=== PATIENT | male | born 1955 | race Hispanic/Latino ===

== ENCOUNTER 2020-02-22 14:02 | Inpatient (IN) | payer OTHER, SELFPAY ==
[~2020-02-22] VITALS: Ht 167.6 cm; Wt 94.5 kg
[~2020-02-22 14:02] MED LIST: CIPR-245 PO; TAMS-1 PO; enalapril PO
[2020-02-22] MEDS ORDERED: ADENOSINE 3 MG/ML 2ML VIAL IV ONE (14:12)
[2020-02-22] MEDS ORDERED: DILTIAZEM HCL 5 MG/ML 10 ML VIAL IV ONE (14:21)
[2020-02-22] MEDS ORDERED: DILTIAZEM HCL 125 MG/25 ML VIAL IV ONE (14:21)
[2020-02-22] MEDS ORDERED: SODIUM CHLORIDE 0.9% 100 ML IV ONE (14:23)
[2020-02-22 14:28] LABS: BASOPHILS % (AUTO) 0.2 % (0.0-5.0); EOSINOPHILS % (AUTO) 0.1 % (0.0-8.0); HEMATOCRIT 42.5 % (42-54); LYMPHOCYTES % (AUTO) 19.8 % (21.0-51.0); MEAN CORPUSCULAR HEMOGLOBIN 28.4 pg (27.0-33.0); MEAN CORPUSCULAR HGB CONC 32.9 g/dL (32.0-36.0); MEAN CORPUSCULAR VOLUME 86.2 fL (79-99); MONOCYTES % (AUTO) 11.2 % (3.0-13.0); NEUTROPHILS % (AUTO) 68.4 % (40.0-77.0); PLATELET COUNT (AUTO) 233 K/uL (130-400); RED BLOOD CELL COUNT(AUTO) 4.93 MIL/uL (4.50-6.20); RED CELL DISTRIBUTION WIDTH 14.2 % (11.0-15.5); WHITE BLOOD COUNT (AUTO) 12.2 K/uL (4.8-10.8)
[2020-02-22] MEDS ORDERED: FENTANYL CITRATE PF 50 MCG/1 ML 2ML VIAL ONE (14:30)
[2020-02-22] MEDS ORDERED: MIDAZOLAM HCL 5 MG/ML 2ML VIAL IV ONE (14:30)
[2020-02-22 14:40] LABS: CREATININE 3.3 mg/dL (0.5-1.5); POTASSIUM 3.7 mmol/L (3.5-5.1)
[2020-02-22 14:42] LABS: INR 0.96 (0.85-1.15); PROTHROMBIN TIME 10.4 SEC (9.6-11.6)
[2020-02-22 14:45] LABS: ALBUMIN 3.9 g/dL (3.5-5.0); TOTAL PROTEIN, SERUM 7.3 g/dL (6.0-8.3)
[2020-02-22] MEDS ORDERED: SODIUM CHLORIDE 0.9% 500ML 500 ML IV ONE (15:19)
[2020-02-22] MEDS ORDERED: CEFTRIAXONE SODIUM 1 GM ONE (15:27)
[2020-02-22] MEDS ORDERED: SODIUM CHLORIDE 0.9% 50 ML IV ONE (15:28)
[2020-02-22] MEDS ORDERED: ASPIRIN 325 MG TABLET ONE (15:34)
[2020-02-22] MEDS ORDERED: SODIUM CHLORIDE 0.9% 1000ML 1,000 ML IV SCH ×2 (15:57→16:00)
[2020-02-22] MEDS ORDERED: NITROGLYCERIN 0.4 MG SL TAB SL PRN (16:00)
[2020-02-22] MEDS ORDERED: ONDANSETRON HCL 4 MG/2 ML VIAL IV PRN (16:00)
[2020-02-22] MEDS ORDERED: ACETAMINOPHEN 325 MG TAB PO PRN ×2 (16:00)
[2020-02-22] MEDS ORDERED: LACTULOSE 20 GM/30 ML UDCUP PO PRN (16:00)
[2020-02-22 16:06] LABS: APPEARANCE,URINE Cloudy (CLEAR); BILIRUBIN,URINE Small (NEGATIVE); COLOR,URINE Dark Yellow (YELLOW); GLUCOSE, URINE (UA) Negative (NEGATIVE); KETONES,URINE 15 mg/dL (NEGATIVE); LEUKOCYTE ESTERASE ,URINE Moderate (NEGATIVE); NITRATE,URINE Negative (NEGATIVE); OCCULT BLOOD,URINE Negative (NEGATIVE); PROTEIN,URINE POS 1+ mg/dL (NEGATIVE)
[2020-02-22 16:14] LABS: AMPHET/METH SCREEN,URINE NEGATIVE (NEGATIVE); BARBITURATE SCREEN, URINE NEGATIVE (NEGATIVE); BENZODIAZEPINES SCREEN,URINE POSITIVE (NEGATIVE); CANNABINOID SCREEN,URINE NEGATIVE (NEGATIVE); COCAINE SCREEN,URINE NEGATIVE (NEGATIVE); OPIATE SCREEN,URINE NEGATIVE (NEGATIVE); PHENCYCLIDINE SCREEN,URINE NEGATIVE (NEGATIVE)
[2020-02-22 16:50] LABS: BACTERIA,URINE Few /HPF (None Seen); MUCUS,URINE Few LPF (None Seen); SQUAMOUS EPITHELIAL CELL,UR Few /HPF (0-2)
[2020-02-22] MEDS ORDERED: FUROSEMIDE 10 MG/ML 2ML VIAL IV SCH (17:15)
[2020-02-22 17:17] LABS: HEMOGLOBIN A1C 5.8 % (4.0-6.0)
[2020-02-22 17:18] LABS: SODIUM,URINE RANDOM 16 mmol/l (40-220)
[2020-02-22 17:24] LABS: CRP QUANTITATIVE 40.5 mg/L (0.00-9.0)
[2020-02-22 17:28] LABS: CREATININE,URINE RANDOM 572 mg/dL (30-135)
[2020-02-22] MEDS: CLOPIDOGREL BISULFATE 75 MG TAB PO SCH (17:45)
[2020-02-22 18:20] LABS: THYROID STIMULATING HORMONE 3.98 uIU/mL (0.36-3.74)
[2020-02-22] MEDS ORDERED: CLOPIDOGREL BISULFATE 75 MG TAB ONE (18:32)
[2020-02-22] MEDS ORDERED: FUROSEMIDE 10 MG/ML 2ML VIAL ONE (18:32)
[2020-02-22] MEDS ORDERED: ATORVASTATIN CALCIUM 40 MG TABLET ONE (20:52)
[2020-02-22] MEDS ORDERED: FAMOTIDINE 20MG TAB 20 MG TAB ONE (20:52)
[2020-02-22] MEDS ORDERED: METOPROLOL TARTRATE 25 MG TAB ONE (20:52)
[2020-02-22] MEDS: METOPROLOL TARTRATE 25 MG TAB PO SCH (21:00)
[2020-02-22] MEDS: ATORVASTATIN CALCIUM 40 MG TABLET PO SCH (21:00)
[2020-02-22 21:27] LABS: CREATININE 2.5 mg/dL (0.5-1.5); POTASSIUM 3.7 mmol/L (3.5-5.1)
[2020-02-23 03:31] LABS: BASOPHILS % (AUTO) 0.5 % (0.0-5.0); EOSINOPHILS % (AUTO) 0.8 % (0.0-8.0); HEMATOCRIT 39.4 % (42-54); LYMPHOCYTES % (AUTO) 17.2 % (21.0-51.0); MEAN CORPUSCULAR HEMOGLOBIN 28.3 pg (27.0-33.0); MEAN CORPUSCULAR HGB CONC 32.5 g/dL (32.0-36.0); MEAN CORPUSCULAR VOLUME 87.2 fL (79-99); MONOCYTES % (AUTO) 8.8 % (3.0-13.0); NEUTROPHILS % (AUTO) 72.4 % (40.0-77.0); PLATELET COUNT (AUTO) 167 K/uL (130-400); RED BLOOD CELL COUNT(AUTO) 4.52 MIL/uL (4.50-6.20); RED CELL DISTRIBUTION WIDTH 13.9 % (11.0-15.5); WHITE BLOOD COUNT (AUTO) 8.8 K/uL (4.8-10.8)
[2020-02-23 03:37] LABS: POTASSIUM 3.8 mmol/L (3.5-5.1)
[2020-02-23] MEDS ORDERED: REGADENOSON 0.4 MG/5 ML PF SYG IVP SCH (08:00)
[2020-02-23] MEDS: ASPIRIN 81MG TAB.CHEW PO SCH (09:00)
[2020-02-23] MEDS: METOPROLOL TARTRATE 25 MG TAB PO SCH ×2 (09:00→21:00)
[2020-02-23] MEDS: FAMOTIDINE 20MG TAB 20 MG TAB PO SCH (09:00)
[2020-02-23] MEDS: CLOPIDOGREL BISULFATE 75 MG TAB PO SCH (09:00)
[2020-02-23] MEDS: CEFTRIAXONE SODIUM 1 GM IVP SCH (12:30)
[2020-02-23] MEDS ORDERED: METOPROLOL TARTRATE 25 MG TAB ONE (12:54)
[2020-02-23] MEDS ORDERED: FUROSEMIDE 10 MG/ML 2ML VIAL ONE (13:03)
[2020-02-23] MEDS ORDERED: ASPIRIN 81MG TAB.CHEW ONE (15:33)
[2020-02-23] MEDS ORDERED: CEFTRIAXONE SODIUM 1 GM ONE (15:34)
--- NOTE | 2020-02-23 18:37 | NUR ---
INITIAL SW spoke to patient's spouse, Marietta Ellis. Patient lives with spouse. No home services. DME; [facility]. Patient is able to complete ADL's and drives. PCP is Dr. Antoni Bhagat. Pharmacy is [facility] located on [address]. DCP is home. Addendum: 02/23/20 at 1839 by NESTOR BLANCO SS Amended: Links added.
[2020-02-23] MEDS ORDERED: CLOPIDOGREL BISULFATE 75 MG TAB ONE (20:48)
[2020-02-23] MEDS ORDERED: FAMOTIDINE 20MG TAB 20 MG TAB ONE (20:48)
[2020-02-23] MEDS ORDERED: ATORVASTATIN CALCIUM 40 MG TABLET ONE (20:49)
[2020-02-23] MEDS ORDERED: TAMSULOSIN HCL 0.4 MG CAP.ER.24H ONE (20:49)
[2020-02-23] MEDS: ATORVASTATIN CALCIUM 40 MG TABLET PO SCH (21:00)
[2020-02-23 23:55] VITALS: BP 145/76
[2020-02-24 04:16] VITALS: BP 140/79
[2020-02-24 06:49] LABS: CREATININE 1.3 mg/dL (0.5-1.5)
[2020-02-24 08:32] VITALS: BP 157/86
[2020-02-24] MEDS: METOPROLOL TARTRATE 25 MG TAB PO SCH ×2 (08:42→20:03)
[2020-02-24] MEDS: FAMOTIDINE 20MG TAB 20 MG TAB PO SCH (08:42)
[2020-02-24] MEDS: TAMSULOSIN HCL 0.4 MG CAP.ER.24H PO SCH (08:42)
[2020-02-24] MEDS: CLOPIDOGREL BISULFATE 75 MG TAB PO SCH (08:42)
[2020-02-24] MEDS: ASPIRIN 81MG TAB.CHEW PO SCH (08:43)
[2020-02-24] MEDS ORDERED: SODIUM CHLORIDE 0.9% 1000ML 1,000 ML IV ONE (10:45)
[2020-02-24 11:53] VITALS: BP 137/81
[2020-02-24] MEDS: CEFTRIAXONE SODIUM 1 GM IVP SCH (12:31)
[2020-02-24 15:07] VITALS: BP 154/91
--- NOTE | 2020-02-24 18:29 | NUR ---
pt aox4. pt was seen by foreign law consultant in the am. new order obtained for cardiac cath in the morning. procedure explained by MD. consent obtained. pt on gentle hydration per order.npo tonight. vss. SR on monitor
[2020-02-24 19:35] VITALS: BP 167/98
[2020-02-24] MEDS: ATORVASTATIN CALCIUM 40 MG TABLET PO SCH (20:03)
[2020-02-24 23:05] VITALS: BP 152/94
[2020-02-25] VITALS (11 sets, daily range): BP systolic 145–168; BP diastolic 67–92
[2020-02-25 06:02] LABS: BASOPHILS % (AUTO) 0.2 % (0.0-5.0); EOSINOPHILS % (AUTO) 0.8 % (0.0-8.0); HEMATOCRIT 38.7 % (42-54); LYMPHOCYTES % (AUTO) 18.7 % (21.0-51.0); MEAN CORPUSCULAR HEMOGLOBIN 28.5 pg (27.0-33.0); MEAN CORPUSCULAR HGB CONC 33.3 g/dL (32.0-36.0); MEAN CORPUSCULAR VOLUME 85.4 fL (79-99); MONOCYTES % (AUTO) 9.4 % (3.0-13.0); NEUTROPHILS % (AUTO) 70.6 % (40.0-77.0); PLATELET COUNT (AUTO) 182 K/uL (130-400); RED BLOOD CELL COUNT(AUTO) 4.53 MIL/uL (4.50-6.20); RED CELL DISTRIBUTION WIDTH 13.1 % (11.0-15.5)
[2020-02-25 06:24] LABS: INR 0.99 (0.85-1.15); PARTIAL THROMBOPLASTIN TIME 26.4 SEC (26.3-35.5); PROTHROMBIN TIME 10.7 SEC (9.6-11.6)
[2020-02-25 06:29] LABS: BILIRUBIN,TOTAL 0.6 mg/dL (0.2-1.0); POTASSIUM 3.3 mmol/L (3.5-5.1); TOTAL PROTEIN, SERUM 6.2 g/dL (6.0-8.3)
[2020-02-25] MEDS ORDERED: LISI40TA4 PO (06:30)
[2020-02-25] MEDS: TAMSULOSIN HCL 0.4 MG CAP.ER.24H PO SCH (08:26)
[2020-02-25] MEDS: FAMOTIDINE 20MG TAB 20 MG TAB PO SCH (08:26)
[2020-02-25] MEDS: METOPROLOL TARTRATE 25 MG TAB PO SCH (08:26)
[2020-02-25] MEDS ORDERED: PERFLUTREN PROTEIN-A MICROSPHR 0.22 MG/ML VIAL IV ONE (09:00)
[2020-02-25] MEDS ORDERED: BIVALIRUDIN 250 MG/VIAL IV ONE (10:30)
[2020-02-25] MEDS ORDERED: HEPARIN SODIUM 1000UNIT/ML 10ML VIAL ONE (10:30)
[2020-02-25] MEDS ORDERED: NITROGLYCERIN 2 MG/VIAL VIAL IV ONE (10:30)
[2020-02-25] MEDS ORDERED: LIDOCAINE HCL 2% 20ML ONE (10:31)
[2020-02-25] MEDS ORDERED: IOHEXOL 350 MG/ML 100ML INFUS..BTL IV ONE (10:31)
[2020-02-25] MEDS ORDERED: MIDAZOLAM HCL 1 MG/ML 2ML VIAL ONE (10:31)
[2020-02-25] MEDS ORDERED: FENTANYL CITRATE PF 50 MCG/1 ML 2ML VIAL ONE (10:31)
[2020-02-25] MEDS ORDERED: IOHEXOL-350 50ML VIAL IV ONE (11:16)
[2020-02-25] MEDS ORDERED: HYDRALAZINE HCL 20 MG/ML VIAL ONE (11:48)
[2020-02-25] MEDS ORDERED: DEXTROSE 50%-WATER 50 ML DISP.SYRIN IV PRN (12:30)
[2020-02-25] MEDS ORDERED: GLUCAGON 1MG KIT 1 MG ML IM PRN (12:30)
[2020-02-25] MEDS: CEFTRIAXONE SODIUM 1 GM IVP SCH (12:58)
[2020-02-25] MEDS: ASPIRIN 81MG TAB.CHEW PO SCH (12:58)
[2020-02-25] MEDS ORDERED: SODIUM CHLORIDE 0.9% 1000ML 1,000 ML IV SCH (15:28)
[2020-02-25] MEDS ORDERED: POTASSIUM CHLORIDE 20MEQ/100ML 100 ML IV PRN (20:30)
[2020-02-25] MEDS ORDERED: POTASSIUM CHLORIDE 20 MEQ ERTAB PO PRN (20:30)
[2020-02-25] MEDS ORDERED: LIDOCAINE HCL-MPF 1% 2ML VIAL IV PRN (20:30)
[2020-02-25] MEDS ORDERED: POTASSIUM CHLORIDE 10% ELIXIR 20 MEQ/15 ML UDCUP PO PRN (20:30)
[2020-02-25] MEDS: ATORVASTATIN CALCIUM 40 MG TABLET PO SCH (20:49)
[2020-02-26] VITALS (12 sets, daily range): BP systolic 141–170; BP diastolic 53–98
[2020-02-26 03:51] LABS: HEMATOCRIT 38.3 % (42-54); MEAN CORPUSCULAR HEMOGLOBIN 28.4 pg (27.0-33.0); MEAN CORPUSCULAR HGB CONC 33.9 g/dL (32.0-36.0); MEAN CORPUSCULAR VOLUME 83.6 fL (79-99); RED BLOOD CELL COUNT(AUTO) 4.58 MIL/uL (4.50-6.20); RED CELL DISTRIBUTION WIDTH 13.1 % (11.0-15.5); WHITE BLOOD COUNT (AUTO) 7.1 K/uL (4.8-10.8)
[2020-02-26 04:09] LABS: POTASSIUM 3.6 mmol/L (3.5-5.1)
--- NOTE | 2020-02-26 04:30 | NUR ---
PT STATES HE WAS NOT AWARE OF ANY OTHER PROCEDURE AND HE DOES NOT WANT ANY OTHER PROCEDUR, PT STATES HE WANTS TO GO HOME EXTRUDER OPERATOR MULTIPLE CONFIRM PATIENT IS SCHEDULE FOR AN ABLATION W DR. GARCIA PATIENT STATES HE WANTS TO TALK FIRST WITH DR. BUENO EXTRUDER OPERATOR MULTIPLE AWARE PATIENT IS REFUSING PROCEDURE AT THIS TIME WILL CONVEY INFORMATION AND PATIENT'S WISHES TO ON COMING NURSE
[2020-02-26] MEDS ORDERED: HEPARIN SODIUM 1000UNIT/ML 10ML VIAL ONE (07:30)
[2020-02-26] MEDS ORDERED: MEPERIDINE-PF 25 MG/ML SYG ONE ×2 (07:31→10:13)
[2020-02-26] MEDS ORDERED: MIDAZOLAM HCL 1 MG/ML 2ML VIAL ONE ×2 (07:31→10:13)
[2020-02-26] MEDS: ASPIRIN 81MG TAB.CHEW PO SCH (09:00)
[2020-02-26] MEDS ORDERED: LIDOCAINE HCL 2% 20ML ONE (09:23)
[2020-02-26] MEDS ORDERED: VANCOMYCIN 1GM+NS 250ML 250 ML IV PRN (12:15)
[2020-02-26] MEDS: TAMSULOSIN HCL 0.4 MG CAP.ER.24H PO SCH (13:04)
[2020-02-26] MEDS: FAMOTIDINE 20MG TAB 20 MG TAB PO SCH (13:04)
[2020-02-26] MEDS: CEFTRIAXONE SODIUM 1 GM IVP SCH (13:05)
--- NOTE | 2020-02-26 17:05 | NUR ---
5 beat run of wide complex rate of 180 dr hammond informed and made aware; patient to receive Multaq med tonight; no new orders given. Patient is asymptomatic and converted back to sinus rhythm right after this arrhythmia.
[2020-02-26] MEDS: DRONEDARONE HYDROCHLORIDE 400 MG TABLET PO SCH (20:26)
[2020-02-26] MEDS: DiphenhydrAMINE HCL 50 MG/ML VIAL IV SCH (20:26)
[2020-02-26] MEDS: ATORVASTATIN CALCIUM 40 MG TABLET PO SCH (20:27)
[2020-02-27] VITALS (15 sets, daily range): BP systolic 106–168; BP diastolic 60–94
--- NOTE | 2020-02-27 05:30 | NUR ---
PT VERBALIZES CONSENT FOR AICD PROCEDURE STATES HE TALKED TO HIS FAMILY ALREADY AND THEY ALL AGREE AND HE AGREES TO THE PROCEDURE WELL PT SIGNED CONSENT NO FURTHER QUESTIONS
[2020-02-27 06:09] LABS: BASOPHILS % (AUTO) 0.1 % (0.0-5.0); EOSINOPHILS % (AUTO) 0.5 % (0.0-8.0); HEMATOCRIT 43.4 % (42-54); LYMPHOCYTES % (AUTO) 13.2 % (21.0-51.0); MEAN CORPUSCULAR HEMOGLOBIN 28.4 pg (27.0-33.0); MEAN CORPUSCULAR HGB CONC 34.1 g/dL (32.0-36.0); MEAN CORPUSCULAR VOLUME 83.3 fL (79-99); MONOCYTES % (AUTO) 8.5 % (3.0-13.0); NEUTROPHILS % (AUTO) 77.2 % (40.0-77.0); PLATELET COUNT (AUTO) 182 K/uL (130-400); RED BLOOD CELL COUNT(AUTO) 5.21 MIL/uL (4.50-6.20); RED CELL DISTRIBUTION WIDTH 13.2 % (11.0-15.5); WHITE BLOOD COUNT (AUTO) 7.6 K/uL (4.8-10.8)
[2020-02-27 06:32] LABS: CREATININE 0.9 mg/dL (0.5-1.5); POTASSIUM 3.5 mmol/L (3.5-5.1)
[2020-02-27 06:47] LABS: PROTHROMBIN TIME 10.8 SEC (9.6-11.6)
[2020-02-27] MEDS ORDERED: BUPIVACAINE/PF 0.25% 30ML VIAL IJ ONE (09:11)
[2020-02-27] MEDS ORDERED: MEPERIDINE-PF 25 MG/ML SYG ONE ×2 (09:12→09:23)
[2020-02-27] MEDS ORDERED: IOHEXOL-350 50ML VIAL IV ONE (09:12)
[2020-02-27] MEDS ORDERED: LIDOCAINE HCL 1% MDV 50ML VIAL ONE (09:12)
[2020-02-27] MEDS ORDERED: MIDAZOLAM HCL 1 MG/ML 2ML VIAL ONE ×2 (09:12→09:23)
[2020-02-27] MEDS ORDERED: VANCOMYCIN 1GM+NS 250ML 500 ML IV ONE (09:12)
[2020-02-27] MEDS: FAMOTIDINE 20MG TAB 20 MG TAB PO SCH (12:43)
[2020-02-27] MEDS: TAMSULOSIN HCL 0.4 MG CAP.ER.24H PO SCH (12:44)
[2020-02-27] MEDS: DRONEDARONE HYDROCHLORIDE 400 MG TABLET PO SCH ×2 (12:44→20:22)
[2020-02-27] MEDS: CEFTRIAXONE SODIUM 1 GM IVP SCH (12:45)
[2020-02-27] MEDS: ACETAMINOPHEN-CODEINE 300/30MG TAB PO PRN ×3 (13:05→23:18)
[2020-02-27] MEDS: DiphenhydrAMINE HCL 50 MG/ML VIAL IV SCH (19:22)
[2020-02-27] MEDS ORDERED: LISINOPRIL 20 MG TABLET PO SCH (20:00)
[2020-02-27] MEDS: ATORVASTATIN CALCIUM 40 MG TABLET PO SCH (20:22)
[2020-02-27] MEDS: LISINOPRIL 20 MG TABLET PO SCH (20:23)
[2020-02-27] MEDS: ASPIRIN 81MG TAB.CHEW PO SCH (20:24)
--- NOTE | 2020-02-27 20:30 | NUR ---
PAIN MANAGEMENT SPOKE WITH PT REGARDING PRN PAIN MEDICATION SCHEDULE, INFORMED PT THAT HE WOULD BE ELIGIBLE FOR ANOTHER DOSE OF TYLENOL #3 AT ~2300. PT STATES HE IS OK WITH THAT SCHEDULE AND VERBALIZED UNDERSTANDING. DENIES NEEDS AT THIS TIME. SAFETY MEASURES IN PLACE, WILL CONT TO MONITOR
--- NOTE | 2020-02-28 00:08 | NUR ---
NURSING OBS In bed awake, denies pain/needs
[2020-02-28] MEDS: ACETAMINOPHEN-CODEINE 300/30MG TAB PO PRN ×3 (00:26→14:18)
[2020-02-28 04:00] VITALS: BP 133/77
[2020-02-28 07:35] VITALS: BP 156/92
[2020-02-28] MEDS ORDERED: LISINOPRIL 40 MG TABLET PO SCH (09:00)
[2020-02-28] MEDS ORDERED: TAMSULOSIN HCL 0.4 MG CAP.ER.24H PO SCH (09:00)
[2020-02-28] MEDS: FAMOTIDINE 20MG TAB 20 MG TAB PO SCH (09:15)
[2020-02-28] MEDS: ASPIRIN 81MG TAB.CHEW PO SCH (09:15)
[2020-02-28] MEDS: DRONEDARONE HYDROCHLORIDE 400 MG TABLET PO SCH (09:15)
[2020-02-28] MEDS: TAMSULOSIN HCL 0.4 MG CAP.ER.24H PO SCH (09:15)
[2020-02-28] MEDS: LISINOPRIL 20 MG TABLET PO SCH (09:16)
[2020-02-28 11:53] VITALS: BP 137/81
[2020-02-28] MEDS ORDERED: IOHEXOL-350 75 ML VIAL IV ONE (12:34)
[2020-02-28] MEDS ORDERED: ACET-66 PO (14:13)
[2020-02-28] MEDS ORDERED: CEPH-578 PO (14:13)
[2020-02-28] MEDS ORDERED: DRON400T2 PO (14:13)
[2020-02-28] MEDS ORDERED: ASPI-1005 PO (14:13)
[2020-02-28] MEDS: CEFTRIAXONE SODIUM 1 GM IVP SCH (14:18)
--- NOTE | 2020-02-28 15:03 | NUR ---
CM Note: Multaq CM spoke to Lili w/[facility] regarding Multaq 400mg PO BID, as per Lili pt copay will be $8.95. primary nurse. Pt safe to dc once md clear via private car. CM to cont to follow up.
[2020-02-28 15:44] VITALS: BP 124/57
--- NOTE | 2020-02-28 18:15 | NUR ---
DC PT AWAKE, ALERT, AND ORIENTED. DC INSTRUCTIONS GIVEN TO PT, ACKNOWLEDGED ALL INFORMATION, ALL QUESTIONS ANSWERED. AICD SITE INTACT, NO DRAINAGE OR HEMATOMA. PT EDUCATED ON AICD PRECAUTIONS, ACKNOWLEDGED ALL INFORMATION. EDUCATED ON IMPORTANCE OF MEDICATIONS AND SIDE EFFECTS. SON AT BEDSIDE. EXTERNAL AICD EQUIPMENT TAKEN AND TEMPORARY AICD CARD WITH PATIENT.
== END 2020-02-28 18:20 | disposition home or self-care (01) | DRG 222 ==
LOC: EDH 14:02 → OBSVTOIN 16:07 → EDHIP 16:07 → INTOOBSV 16:07 → 2DH 02-23 23:51 → 4CH 02-25 19:36
PROVIDERS: ADMIT Internal Medicine; ATTEND Internal Medicine
PROC: 5A2204Z Restoration of Cardiac Rhythm, Single (ICD-10-PCS; 2020-02-22)
PROC: 4A023N7 Measurement of Cardiac Sampling and Pressure, Left Heart, Percutaneous Approach (ICD-10-PCS; principal; 2020-02-25)
PROC: B2111ZZ Fluoroscopy of Multiple Coronary Arteries using Low Osmolar Contrast (ICD-10-PCS; 2020-02-25)
PROC: 4A023FZ Measurement of Cardiac Rhythm, Percutaneous Approach (ICD-10-PCS; 2020-02-26)
PROC: 4A0234Z Measurement of Cardiac Electrical Activity, Percutaneous Approach (ICD-10-PCS; 2020-02-26)
PROC: 02K83ZZ Map Conduction Mechanism, Percutaneous Approach (ICD-10-PCS; 2020-02-26)
PROC: 0JH608Z Insertion of Defibrillator Generator into Chest Subcutaneous Tissue and Fascia, Open Approach (ICD-10-PCS; 2020-02-27)
PROC: 02HK3KZ Insertion of Defibrillator Lead into Right Ventricle, Percutaneous Approach (ICD-10-PCS; 2020-02-27)
DX: I13.0 Hypertensive heart and chronic kidney disease with heart failure and stage 1 through stage 4 chronic kidney disease, or unspecified chronic kidney disease (principal); I50.43 Acute on chronic combined systolic (congestive) and diastolic (congestive) heart failure; I47.1 Supraventricular tachycardia; N17.9 Acute kidney failure, unspecified; E78.5 Hyperlipidemia, unspecified; I25.10 Atherosclerotic heart disease of native coronary artery without angina pectoris; N40.0 Benign prostatic hyperplasia without lower urinary tract symptoms; E11.22 Type 2 diabetes mellitus with diabetic chronic kidney disease; I34.0 Nonrheumatic mitral (valve) insufficiency; I49.3 Ventricular premature depolarization; K57.90 Diverticulosis of intestine, part unspecified, without perforation or abscess without bleeding; K76.89 Other specified diseases of liver; N18.9 Chronic kidney disease, unspecified; Z20.828 Contact with and (suspected) exposure to other viral communicable diseases; I25.5 Ischemic cardiomyopathy; Z79.899 Other long term (current) drug therapy; Z82.0 Family history of epilepsy and other diseases of the nervous system; Z82.3 Family history of stroke; Z82.49 Family history of ischemic heart disease and other diseases of the circulatory system; Z83.3 Family history of diabetes mellitus
CPT/HCPCS: 33249; 36415; 71045; 74176; 74178; 76770; 78452; 80048; 80053; 80061; 80305; 81001; 82570; 82728; 82948; 83036; 83615; 83735; 83880; 84132; 84300; 84443; 84484; 84540; 85025; 85027; 85378; 85610; 85730; 86140; 87077; 87088; 87186; 87426; 93005; 93017; 93306; 93308; 93356; 93458; 93621; 93654; 96374; 99156; 99157; 99291; A9500; C1722; C1730; C1760; C1893; C1894; C1895; G0378; J0153; J0360; J0583; J0696; J1200; J1644; J1940; J2175; J2250; J2785; J3010; J3370; J3480; J3490; J7040; Q9967; U0003

== ENCOUNTER 2020-03-03 16:15 | Emergency (ER) | payer OTHER ==
[~2020-03-03 16:15] MED LIST changes: +ACET-66 PO; +ASPI-1005 PO; +CEPH-578 PO; -CIPR-245 PO; +DRON400T2 PO; +LISI40TA4 PO; -enalapril PO
== END 2020-03-03 17:21 | disposition home or self-care (01) ==
LOC: EDH 16:15
DX: S50.12XA Contusion of left forearm, initial encounter (principal); I10 Essential (primary) hypertension; X58.XXXA Exposure to other specified factors, initial encounter; Y93.89 Activity, other specified; Y92.098 Other place in other non-institutional residence as the place of occurrence of the external cause; Y99.8 Other external cause status
CPT/HCPCS: 73090

== ENCOUNTER → 2023-02-21 | Outpatient (CLI) | payer OTHER ==
[~2023-02-21] MED LIST changes: -DRON400T2 PO; +DRON400T7 PO; -LISI40TA4 PO; +LISI40TA9 PO
== END | disposition home or self-care (01) ==
LOC: SHCH 08:39
PROVIDERS: ATTEND Internal Medicine Cardiovascular Disease
DX: I42.8 Other cardiomyopathies (principal); I11.9 Hypertensive heart disease without heart failure; Z95.0 Presence of cardiac pacemaker
CPT/HCPCS: 93306

== ENCOUNTER → 2023-08-17 | Outpatient (CLI) | payer OTHER ==
[2023-08-17 12:13] LABS: BASOPHILS # (AUTO) 0.04 K/uL (0.00-0.20); BASOPHILS % (AUTO) 0.7 % (0.0-5.0); EOSINOPHILS # (AUTO) 0.04 K/uL (0.00-0.70); EOSINOPHILS % (AUTO) 0.7 % (0.0-8.0); HEMATOCRIT 42.9 % (42-54); IMMATURE GRANULOCYTE ABSOLUTE 0.02 K/uL (0-1); LYMPHOCYTES # (AUTO) 1.3 K/uL (1.0-4.8); MEAN CORPUSCULAR HEMOGLOBIN 28.7 pg (27.0-33.0); MEAN CORPUSCULAR HGB CONC 32.6 g/dL (32.0-36.0); MEAN CORPUSCULAR VOLUME 87.9 fL (79-99); MONOCYTES # (AUTO) 0.6 K/uL (0.1-1.0); MONOCYTES % (AUTO) 10.6 % (3.0-13.0); NEUTROPHILS # (AUTO) 3.5 K/uL (1.8-7.7); NEUTROPHILS % (AUTO) 64.6 % (40.0-77.0); PLATELET COUNT (AUTO) 175 K/uL (130-400); RED BLOOD CELL COUNT(AUTO) 4.88 MIL/uL (4.50-6.20); RED CELL DISTRIBUTION WIDTH 13.7 % (11.0-15.5); WHITE BLOOD COUNT (AUTO) 5.5 K/uL (4.8-10.8)
[2023-08-17 12:58] LABS: ALBUMIN 3.6 g/dL (3.5-5.0); BILIRUBIN,TOTAL 0.7 mg/dL (0.2-1.0); CREATININE 1.1 mg/dL (0.5-1.5); MAGNESIUM 2.1 mg/dL (1.80-2.40); POTASSIUM 3.5 mmol/L (3.5-5.1); THYROID STIMULATING HORMONE 2.35 uIU/mL (0.36-3.74); TOTAL PROTEIN, SERUM 6.9 g/dL (6.0-8.3)
== END | disposition home or self-care (01) ==
LOC: LAB 11:12
PROVIDERS: ATTEND Internal Medicine Cardiovascular Disease
DX: I47.20 Ventricular tachycardia, unspecified (principal); I10 Essential (primary) hypertension; N40.0 Benign prostatic hyperplasia without lower urinary tract symptoms
CPT/HCPCS: 36415; 80053; 83735; 84443; 85025

== ENCOUNTER 2024-11-01 05:44 | Day surgery (SDC) | payer OTHER ==
[~2024-11-01] VITALS: Ht 167.6 cm; Wt 96.6 kg
[2024-11-01] VITALS (11 sets, daily range): BP systolic 109–165; BP diastolic 67–78; PULSE 48–74; RESP 15–18; TEMP 97.2–98.6
[~2024-11-01 05:44] MED LIST changes: -ACET-66 PO; +AMIO200T68 PO; +ATOR10 PO; -CEPH-578 PO; -DRON400T7 PO; +FINA5TAB41 PO; -LISI40TA9 PO; +LOSA50TA64 PO; +METO-391 PO
[2024-11-01] MEDS: 0.9%NACL 1000ML 1,000 ML IV ONE (06:23)
[2024-11-01] MEDS ORDERED: proPOFol 10 MG/ML 20ML VIAL IV ONE (07:33)
== END 2024-11-01 08:56 | disposition home or self-care (01) ==
LOC: ENDO 05:44 → DAH 05:44 → ENDO 08:56
PROVIDERS: ATTEND Internal Medicine Gastroenterology
DX: Z12.11 Encounter for screening for malignant neoplasm of colon (principal); D12.0 Benign neoplasm of cecum; K63.5 Polyp of colon; K57.30 Diverticulosis of large intestine without perforation or abscess without bleeding; I10 Essential (primary) hypertension; I42.8 Other cardiomyopathies; E78.2 Mixed hyperlipidemia; I47.20 Ventricular tachycardia, unspecified; Z79.899 Other long term (current) drug therapy; Z98.890 Other specified postprocedural states
CPT/HCPCS: 45380; 45385; J7030 ×2; J2704; A4215; A4223; A7002; A4222; A4221; A4663; A4606; J3490